=== PATIENT | male | born 1990 | race Caucasian/White ===

== ENCOUNTER → 2017-05-12 | Outpatient (CLI) | payer OTHER ==
[2017-05-12 16:44] LABS: BASOPHILS ABSOLUTE AUTO 0.04 K/mm3 (0.00-0.23); BASOPHILS PERCENT AUTO 0 % (0-2); EOSINOPHILS PERCENT AUTO 1 % (0-6); Hematocrit 43.3 % (37.0-53.0); Hemoglobin 15.1 g/dL (13.5-17.5); IMMATURE GRAN ABSOLUTE AUTO 0.04 K/mm3 (0.00-0.10); IMMATURE GRAN PERCENT AUTO 0 % (0-1); LYMPHOCYTES ABSOLUTE AUTO 1.93 K/mm3 (0.84-5.20); LYMPHOCYTES PERCENT AUTO 20 % (21-46); MONOCYTES ABSOLUTE AUTO 0.64 K/mm3 (0.16-1.47); MONOCYTES PERCENT AUTO 7 % (4-13); Mean Corpuscular HGB 29.6 pg (26.0-34.0); Mean Corpuscular HGB Conc 34.9 g/dL (31.5-36.5); Mean Corpuscular Volume 85 fL (80-100); Mean Platelet Volume 10.3 fL (9.1-12.4); NEUTROPHILS ABSOLUTE AUTO 6.81 K/mm3 (1.96-9.15); NEUTROPHILS PERCENT AUTO 71 % (41-73); Platelet Count 252 K/mm3 (150-400); RDW Coefficient Variation 11.9 % (11.7-14.2); RDW Standard Deviation 36.7 fL (35.1-46.3); White Blood Cell Count 9.56 K/mm3 (4.00-11.30)
[2017-05-12 16:59] LABS: Anion Gap 11 mmol/L (6-16); Blood Urea Nitrogen 14 mg/dL (8-24); Bun/Creatinine Ratio 11.9 (12.0-20.0); CO2, Blood 29 mmol/L (21-32); Calcium, Blood 9.3 mg/dL (8.5-10.1); Chloride, Blood 105 mmol/L (98-108); Creatinine, Blood 1.18 mg/dL (0.60-1.20); Glomerular Filtration Rate >60 (60-); Glucose, Blood 94 mg/dL (70-99); Potassium, Blood 4.1 mmol/L (3.5-5.5); Sodium, Blood 145 mmol/L (136-145); Troponin I <0.017 ng/mL (0.000-0.040)
== END | disposition home or self-care (01) ==
LOC: LAB EV 16:38 → LAB SHORT 16:38
PROVIDERS: Physician Assistant Surgical
DX: R07.9 Chest pain, unspecified (principal)
CPT/HCPCS: 80048; 84484; 85025

== ENCOUNTER 2018-12-26 05:12 | Emergency (ER) | payer OTHER ==
[~2018-12-26] VITALS: Ht 175.3 cm; Wt 88.5 kg
== END 2018-12-26 07:31 | disposition home or self-care (01) ==
LOC: ER 05:12
DX: R09.1 Pleurisy (principal); F41.0 Panic disorder [episodic paroxysmal anxiety]
CPT/HCPCS: 71046; 93005; 93010; 99284-25

== ENCOUNTER → 2022-04-26 | Outpatient (CLI) | payer OTHER ==
[2022-04-26 10:24] LABS: BASOPHILS ABSOLUTE AUTO 0.05 K/mm3 (0.00-0.23); BASOPHILS PERCENT AUTO 1 % (0-2); EOSINOPHILS ABSOLUTE AUTO 0.11 K/mm3 (0.00-0.68); EOSINOPHILS PERCENT AUTO 2 % (0-6); Hemoglobin 14.8 g/dL (13.5-17.5); IMMATURE GRAN ABSOLUTE AUTO 0.01 K/mm3 (0.00-0.10); IMMATURE GRAN PERCENT AUTO 0 % (0-1); LYMPHOCYTES ABSOLUTE AUTO 1.76 K/mm3 (0.84-5.20); LYMPHOCYTES PERCENT AUTO 32 % (21-46); MONOCYTES ABSOLUTE AUTO 0.34 K/mm3 (0.16-1.47); MONOCYTES PERCENT AUTO 6 % (4-13); Mean Corpuscular HGB 29.8 pg (26.0-34.0); Mean Corpuscular HGB Conc 34.4 g/dL (31.5-36.5); Mean Corpuscular Volume 87 fL (80-100); Mean Platelet Volume 11.1 fL (9.1-12.4); NEUTROPHILS ABSOLUTE AUTO 3.27 K/mm3 (1.96-9.15); NEUTROPHILS PERCENT AUTO 59 % (41-73); Platelet Count 222 K/mm3 (150-400); RDW Coefficient Variation 12.2 % (11.7-14.2); RDW Standard Deviation 38.5 fL (35.1-46.3); Red Blood Cell Count 4.96 M/mm3 (4.30-5.90); White Blood Cell Count 5.54 K/mm3 (4.00-11.30)
[2022-04-26 10:50] LABS: Alanine Aminotransfer (ALT/SGP 61 U/L (12-78); Albumin/Globulin Ratio 1.3 (0.8-1.8); Alk Phos 60 U/L (50-136); Anion Gap 0 mmol/L (6-16); Aspartate Aminotrans (AST/SGOT 23 U/L (12-37); Bilirubin, Total 0.9 mg/dL (0.1-1.0); Blood Urea Nitrogen 13 mg/dL (8-24); Bun/Creatinine Ratio 13.6 (12.0-20.0); CHOL/HDL RATIO 4.6; CO2, Blood 29 mmol/L (21-32); Calcium, Blood 9.2 mg/dL (8.5-10.1); Chloride, Blood 109 mmol/L (98-108); Cholesterol 171 mg/dL (50-200); Creatinine, Blood 0.95 mg/dL (0.60-1.20); Glomerular Filtration Rate 108 (60-); Glucose, Blood 119 mg/dL (70-99); HDL Cholesterol 37 mg/dL (>39); LDL/HDL RATIO 2.8; Low Density Lipoprotein Chol 105 mg/dL (0-110); Potassium, Blood 4.1 mmol/L (3.5-5.5); Sodium, Blood 138 mmol/L (136-145); Triglycerides 144 mg/dL (30-140); Very Low Density Lipoprot Chol 28 mg/dL (6-28)
== END | disposition home or self-care (01) ==
LOC: LAB 10:06 → LAB SHORT 10:06
PROVIDERS: Internal Medicine
DX: Z13.220 Encounter for screening for lipoid disorders (principal); R07.89 Other chest pain; R73.9 Hyperglycemia, unspecified
CPT/HCPCS: 80053; 80061; 83036; 84484; 85025